=== PATIENT | female | born 1955 | race Caucasian/White ===

== ENCOUNTER 2017-03-17 18:18 | Emergency (ER) | payer OTHER ==
[~2017-03-17] VITALS: Ht 157.5 cm; Wt 51.7 kg
[2017-03-17 18:48] LABS: ABSOLUTE BASOPHIL COUNT 0 /CUMM (0.0-0.2); ABSOLUTE EOSINOPHIL COUNT 0.2 /CUMM (0.0-0.7); ABSOLUTE LYMPH COUNT 0.3 /CUMM (1.2-3.4); ABSOLUTE MONOCYTE COUNT 0.1 /CUMM (0.10-0.60); BASOPHIL % 0 % (0.0-2.0); EOSINOPHIL % 3.9 % (0-5); GRANULOCYTE % 89.6 % (42.2-75.2); MEAN CORPUSCULAR HGB 29.6 PG (27.0-31.0); MEAN CORPUSCULAR HGB CONC 33.2 G/DL (33.0-37.0); MEAN CORPUSCULAR VOLUME 89.3 FL (81.0-99.0); PLATELET COUNT 195 /CUMM (130-400); RED BLOOD CELL CT 4.59 /CUMM (4.20-5.40); WHITE BLOOD CELL COUNT 5.5 /CUMM (4.8-10.8)
[2017-03-17] MEDS ORDERED: BACTRIM DS TAB1 EACH PO (19:34)
[2017-03-17] MEDS ORDERED: ASACOL HD800 M1 PO (19:34)
[2017-03-17] MEDS ORDERED: PROLIA60 MG/1 ML IM (19:35)
[2017-03-17] MEDS ORDERED: PREVACID30 M1 PO (19:35)
[2017-03-17] MEDS ORDERED: MELOXICAM7.5 M1 PO (19:35)
[2017-03-17] MEDS ORDERED: SIMVASTATIN40 M1 PO (19:35)
[2017-03-17] MEDS ORDERED: FISH OIL 1,0001 EAC4 PO (19:36)
[2017-03-17] MEDS ORDERED: CALCIUM 500 +1 EAC5 PO (19:36)
[2017-03-17] MEDS ORDERED: VITAMIN A10000 UNIT PO (19:36)
[2017-03-17] MEDS ORDERED: IMITREX50 M1 PO (19:37)
[2017-03-17] MEDS ORDERED: TOLTERODINE TART4 M1 PO (19:37)
--- NOTE | 2017-03-17 19:51 | ED GENERAL ADULT ---
History of Present Illness General Chief Complaint: Headache Stated Complaint: ROBLES, FEVER Source: patient, old records Exam Limitations: no limitations Vital Signs & Intake/Output Vital Signs & Intake/Output Vital Signs Date Time Temp Pulse Resp B/P B/P Pulse O2 O2 Flow FiO2 Mean Ox Delivery Rate 03/17 2135 98.2 88 18 103/63 97 Room Air 03/17 2018 98.0 93 18 102/56 94 Room Air 03/178 101.6 03/17 1825 101.6 106 16 108/77 98 Room Air ED Intake and Output 03/18 0000 03/17 1200 Intake Total Output Total Balance Patient 114 lb Weight Weight Reported by Patient Measurement Method Allergies Coded Allergies: Milk Containing Products (LACTOSE INTOLERANT 03/17/17) DAIRY FOOD Reconcile Medications Calcium Carbonate/Vitamin D3 (Calcium 500 + D Tablet) (Unknown Strength) TABLET (Unknown Dose) PO DAILY SUPPLEMENT (Reported) Denosumab (Prolia) 60 MG/ML SYRINGE 60 MG IM Q6M OSTEOPOROSIS (Reported) Lansoprazole (Prevacid) 30 MG CAPSULE.DR 1 CAP PO DAILY GI (Reported) Meloxicam 7.5 MG TABLET 1 TAB PO DAILY ARTHRITIS (Reported) Mesalamine (Asacol Hd) 800 MG TABLET.DR 1 TAB PO BID ULCERATIVE COLITIS ( Reported) [place]-3 Fatty Acids/Fish Oil (Fish Oil 1,000 MG Softgel) (Unknown Strength) CAPSULE (Unknown Dose) PO DAILY SUPPLEMENT (Reported) Simvastatin (Simvastatin*) 40 MG TABLET 1 TAB PO QPM CHOLESTEROL (Reported) Sulfamethoxazole/Trimethoprim (Bactrim Ds Tablet) 800 MG-160 MG TABLET 1 TAB PO BID ANTIBIOTIC (Reported) Sumatriptan Succinate (Imitrex) 50 MG TABLET 1 TAB PO AD PRN MIGRAINES ( Reported) Tolterodine Tartrate (Tolterodine Tartrate ER) 4 MG CAP.ER.24H 1 CAP PO DAILY BLADDER (Reported) Vitamin A (Unknown Strength) CAPSULE (Unknown Dose) PO DAILY SUPPLEMENT ( Reported) Triage Note: PT STATES SHE HAD STARTED WITH A UTI YESTERDAY AND WAS STARTED ON BACTRUM. PT STATES SHE STARTED WITH SHAKING CHILLS AND HER FEVER CONT. PT STATES HE ORDERED CULTURES AND BLOODWORK. PT STATES SHE CAME TO BE SEEN INSTEAD. PT AWARE OF WAIT TIME. PT CONT. WITH TEMP OF 101.6 Triage Nurses Notes Reviewed? yes HPI: Patient started yesterday with dysuria as well as urinary frequency. Patient called her primary care physician. Patient had similar episodes in the past with UTI. Patient was started on Bactrim for presumed UTI. Patient has been taking the Bactrim. Today she developed fevers and chills. Positive anorexia and nausea but no vomiting. Positive back pain. Patient has a throbbing frontal headache which she rates as 5 out of 10. There are no aggravating or mitigating factors. There is no radiation. The headache is constant. There is no blurry vision. There is no neck pain or neck stiffness. Patient comes in for evaluation. Past History Travel History Traveled to [place] past 21 day No Medical History Any Pertinent Medical History? see below for history Cardiovascular: hyperlipidemia Gastrointestinal: GERD, ulcerative colitis Musculoskeletal: osteoarthritis Tetanus Vaccine: 07/17/12 Surgical History Surgical History: appendectomy, cholecystectomy Psychosocial History What is your primary language Trinidadian Tobacco Use: Never used ETOH Use: occasional use Illicit Drug Use: denies illicit drug use Family History Hx Contributory? No Review of Systems Review of Systems Constitutional: Reports: see HPI, chills, fever. EENTM: Reports: no symptoms. Respiratory: Reports: no symptoms. Cardiovascular: Reports: no symptoms. GI: Reports: see HPI, nausea. Genitourinary: Reports: see HPI, dysuria, frequency, hesitation, urgency. Musculoskeletal: Reports: see HPI, back pain. Skin: Reports: no symptoms. Neurological/Psychological: Reports: no symptoms. Hematologic/Endocrine: Reports: no symptoms. Immunologic/Allergic: Reports: no symptoms. All Other Systems: Reviewed and Negative Physical Exam Physical Exam General Appearance: well developed/nourished, alert, awake, mild distress Head: atraumatic, normal appearance Eyes: Bilateral: PERRL, EOMI. Ears, Nose, Throat: normal pharynx, normal ENT inspection, DRY MUCOSA Neck: normal inspection, supple, full range of motion Respiratory: normal breath sounds, chest non-tender, no respiratory distress, lungs clear Cardiovascular: regular rate/rhythm, normal peripheral pulses Gastrointestinal: normal bowel sounds, soft, non-tender, no organomegaly Back: normal inspection, normal range of motion, NO CVA TENDERNESS Extremities: normal inspection, normal capillary refill, normal range of motion, no edema Neurologic/Psych: no motor/sensory deficits, awake, alert, oriented x 3, normal gait, normal mood/affect Skin: intact, normal color, warm/dry Lymphatic: no anterior cervical iwona Core Measures ACS in differential dx? No CVA/TIA Diagnosis: No Severe Sepsis Present: No Septic Shock Present: No Progress Differential Diagnoses I considered the following diagnoses in my evaluation of the patient: [UROSEPSIS , BACTEREMIA] Plan of Care: Orders Procedure Date/time Status CULTURE,URINE 03/17 1942 Active URINALYSIS 03/17 1942 Complete RAPID VIRAL INFLUENZA A 03/17 1837 Complete BLOOD CULTURE 03/17 1829 Active COMPREHENSIVE METABOLIC PANEL 03/17 1829 Complete CBC WITHOUT DIFFERENTIAL 03/17 1829 Complete Laboratory Tests 03/17/172009: Urine Color YEL, Urine Clarity CLEAR, Urine pH 6.0, Ur Specific [place] 1.025, Urine Protein NEG, Urine Ketones >=80, Urine Nitrite NEG, Urine Bilirubin NEG, Urine Urobilinogen 0.2, Ur Leukocyte Esterase NEG, Ur Microscopic EXAM NOT REQUIRED, Urine Hemoglobin NEG, Urine Glucose NEG 03/17/171832: Anion Gap 14, Estimated GFR > 60, BUN/Creatinine Ratio 12.5, Glucose 86, Calcium 9.4, Total Bilirubin 0.6, AST 31, ALT 44, Alkaline Phosphatase 30, Total Protein 7.3, Albumin 4.5, Globulin 2.8, Albumin/Globulin Ratio 1.6, CBC w Diff NO MAN DIFF REQ, RBC 4.59, MCV 89.3, MCH 29.6, RDW 13.0, MPV 8.0, Gran % 89.6 H, Lymphocytes % 5.1 L, Monocytes % 1.4 L, Eosinophils % 3.9, Basophils % 0 L, Absolute Granulocytes 5.0, Absolute Lymphocytes 0.3 L, Absolute Monocytes 0.1 L, Absolute Eosinophils 0.2, Absolute Basophils 0, PUBS MCHC 33.2 Microbiology 03/17 2055 NASOPHARYN: Influenza Virus A & B Rapid Smear - COMP 03/17 2013 BLOOD: Blood Culture - RECD 03/17 2010 URINE ROUT: Urine Culture - RECD 03/17 1833 BLOOD: Blood Culture - RECD Initial ED EKG: none Comments: Patient is feeling better after IV Toradol and IV fluids. The results of and discussed with the patient and questions have been answered. Departure Departure Disposition: HOME OR SELF CARE Condition: Stable Clinical Impression Primary Impression: Fever Referrals: COSME DIOP,MARIO Chang (PCP/Family) Additional Instructions: DRINK PLENTY OF FLUIDS CONTINUE THE BACTRIM RETURN FOR ANY CONCERNS Departure Forms: Customer Survey General Discharge Information Critical Care Note Critical Care Note Critical Care Time: non-applicable
[2017-03-17 21:35] VITALS: BP 103/63
== END 2017-03-17 21:41 ==
LOC: ERH 18:18
PROVIDERS: Emergency Medicine
DX: R50.9 Fever, unspecified (principal); R30.0 Dysuria; M54.9 Dorsalgia, unspecified
CPT/HCPCS: 81003; 87040; 87086; 87804; 87804-59; 96361; 96374; 96375; J0696; J1885